=== PATIENT | male | born 1945 | race Caucasian/White ===

== ENCOUNTER → 2023-10-19 | Day surgery (SDC) | payer MEDICARE, OTHER ==
[2023-10-17 14:14] VITALS: BMI 31.7
[~2023-10-19] MED LIST: ALPRAZolam 0.25 MG TAB PO PRN; ALPRAZolam 0.5 MG TAB PO PRN; ASPIRIN 325 MG TAB PO PRN; HEPARIN SODIUM 1,000 UN/ML (10ML VL) ONE; HEPARIN SODIUM,PORCINE (1 ML) 2,500 UNIT in SODIUM CHLORIDE 0.9% 250 ML IRRIGATION PRN; HEPARIN SODIUM,PORCINE 10,000 UNIT in SODIUM CHLORIDE 0.9% 1,000 ML IRRIGATION PRN; LIDOCAINE 1% INJ 10MG/ML (20 ML MDV) ONE; VERAPAMIL 2.5 MG/ML 2 ML AMP ONE; ZOLPIDEM 5 MG TAB PO PRN; fentaNYL (PF) 50 MCG/ML 2 ML AMP ONE
[2023-10-19] MEDS: EMPTY BAG 1 BAG with SODIUM CHLORIDE 0.9% 1,000 ML IV SCH (06:17)
[2023-10-19 06:29] LABS: Glucose,Whole Blood 117 mg/dL (70-110)
[2023-10-19 06:35] LABS: Basophils # (A) 0.1 k/uL (0-0.2); Basophils % (A) 1 %; Eosinophils # (A) 0.1 k/uL (0-0.7); Eosinophils % (A) 2 %; HCT 44.3 % (39.0-53.0); HGB 14.5 gm/dL (13.0-17.5); Lymphocytes # (A) 1.2 k/uL (1.0-4.8); Lymphocytes % (A) 20 %; MCH 31.4 pg (25.0-35.0); MCHC 32.9 g/dL (31.0-37.0); MCV 95.4 fL (80.0-100.0); Mean Platelet Volume 7.3; Monocytes # (A) 0.4 k/uL (0-1.0); Monocytes % (A) 7 %; Neutrophils # (A) 4.1 k/uL (1.3-7.7); Neutrophils % (A) 69 %; Platelet Count 195 k/uL (150-450); RBC 4.64 m/uL (4.30-5.90); RDW 13.8 % (11.5-15.5); WBC 5.9 k/uL (3.8-10.6)
[2023-10-19 06:37] VITALS: TEMP 98.1
[2023-10-19 06:51] LABS: African American GFR (CKD) 57 (>60 ml/min/1.73 sqM); Anion Gap 8 mmol/L; Blood Urea Nitrogen 25 mg/dL (9-20); Calcium 9.3 mg/dL (8.4-10.2); Carbon Dioxide 28 mmol/L (22-30); Chloride 101 mmol/L (98-107); Glucose 121 mg/dL (74-99); Non-African American GFR(CKD) 49 (>60 ml/min/1.73 sqM); Sodium 137 mmol/L (137-145)
[2023-10-19] MEDS: LIDOCAINE 1% INJ 10MG/ML (20 ML MDV) SQ ONE (07:39)
[2023-10-19] MEDS: VERAPAMIL 2.5 MG/ML 4 ML VIAL INTRAARTER ONE (07:39)
[2023-10-19] MEDS: HEPARIN SODIUM 1,000 UN/ML (10ML VL) MISCELLANE ONE (07:39)
[2023-10-19] MEDS: NITROGLYCERIN 1000MCG/10ML SYRINGE INTRAARTER ONE (07:39)
[2023-10-19] MEDS: MIDAZOLAM 2 MG/2 ML VIAL IVP ONE (07:42)
[2023-10-19] MEDS: fentaNYL (PF) 50 MCG/1 ML VIAL IVP ONE (07:43)
[2023-10-19] MEDS: IOPAMIDOL-300 100ML BTL INTRATHECA ONE (07:58)
--- NOTE | 2023-10-19 08:01 | P.OP ---
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% Procedure: Aortogram with bilateral lower extremity runoffs via left radial artery access under ultrasound guidance Surgeon: Nissa Anesthesia: Moderate sedation times 20 minutes Estimated blood loss: 5 cc Complications: None Condition: Stable Findings: Aorta: Patent with atherosclerotic disease noted without any significant stenosis Iliacs: Bilateral common, internal and external iliac arteries with atherosclerotic disease throughout without any significant stenosis Femorals: Bilateral common femoral, profundus femoris arteries are patent with atherosclerotic disease throughout but no significant stenosis. Bilateral superficial femoral arteries are atherosclerotic and calcific with approximately 80% stenosis at the midportion of the right SFA and 60 to 70% stenosis of the left SFA extending down to the popliteal Popliteal: Bilateral popliteal arteries are patent with atherosclerotic disease throughout with stenosis roughly 60 to 70% on the left Tibials: Right anterior tibial artery occlusion just after the takeoff with reconstitution distally and two-vessel runoff. There is significant posterior tibial artery stenosis roughly 70% at the midportion. Left tibioperoneal trunk is occluded with significant atherosclerotic disease throughout. Difficult to trace blood flow down to the foot but appears to have one-vessel runoff posterior tibial artery Indication for procedure: 78-year-old gentleman with history of lower extremity claudication presents to the hospital for elective aortogram with runoff. He had workup in the office with lower extremity arterial Doppler which demonstrated bilateral ABIs of 0.7. He states he can only walk 30 feet without severe pain and both calves and lower extremities with the left being worse than the right. Operative narrative: After written informed consent was obtained the patient all risks benefits competitions were described the patient is brought to the [facility] and laid in a supine position. The area of the left wrist was prepped and draped in the usual sterile fashion. Local anesthesia with moderate sedation was performed with continuous pulse ox monitoring and EKG monitoring. Utilizing ultrasound the left radial artery was visualized and shown to be patent without any significant plaque. Utilizing a multipurpose needle under ultrasound guidance the artery was accessed. Guidewire was placed followed by 5 [place] slender sheath. 035 Glidewire was then placed into the aorta followed by pigtail catheter. Angiogram was then obtained of the aorta. Catheter was then placed at the bifurcation and lower extremity runoffs were obtained. Once completed all guidewires, catheters and sheaths were removed and pressure was placed for hemostasis. Patient tolerated procedure well was sent to PACU for recovery.
--- NOTE | 2023-10-19 09:19 | IR ---
PICC Insertion: EXAMINATION TYPE: IR angio abdominal w runoff Intraoperative/procedural fluoroscopic services were pr ovided. CLINICAL INDICATION:Male, 78 years old with history of PVD, PAIN IN LEFT LEG, 1.4MIN FLUORO; , [facility] Total fluoroscopy time is 1.4 min. DAP: 3.35 Gycm2 Please see the operative/procedural note for further details.
[2023-10-19 09:42] VITALS: RESP 16
[2023-10-19 12:29] VITALS: BP 146/62; PULSE 63
== END | disposition home or self-care (01) ==
LOC: CATHCVL 05:36
PROVIDERS: ATTEND Surgery
DX: I70.223 Atherosclerosis of native arteries of extremities with rest pain, bilateral legs (principal); E11.51 Type 2 diabetes mellitus with diabetic peripheral angiopathy without gangrene; E11.40 Type 2 diabetes mellitus with diabetic neuropathy, unspecified; E11.69 Type 2 diabetes mellitus with other specified complication; E78.5 Hyperlipidemia, unspecified; I11.9 Hypertensive heart disease without heart failure; Z95.5 Presence of coronary angioplasty implant and graft; Z95.0 Presence of cardiac pacemaker; Z87.891 Personal history of nicotine dependence; Z79.85 Long-term (current) use of injectable non-insulin antidiabetic drugs; Z79.4 Long term (current) use of insulin; Z79.84 Long term (current) use of oral hypoglycemic drugs; Z79.899 Other long term (current) drug therapy; Z79.02 Long term (current) use of antithrombotics/antiplatelets
CPT/HCPCS: 36200; 75625; 75716; 76937; 80048; 85025; C1769 ×3; C1894 ×2; J2250; J2001; J1644; Q9967; J3010; J2305

== ENCOUNTER → 2023-11-19 | Day surgery (SDC) | payer OTHER ==
[~2023-11-19] MED LIST changes: -HEPARIN SODIUM,PORCINE 10,000 UNIT in SODIUM CHLORIDE 0.9% 1,000 ML IRRIGATION PRN; +HEPARIN SODIUM,PORCINE 30 ML 30 ML ONE; -VERAPAMIL 2.5 MG/ML 2 ML AMP ONE
[2023-11-19] MEDS: EMPTY BAG 1 BAG with SODIUM CHLORIDE 0.9% 1,000 ML IV SCH (10:12)
[2023-11-19 10:25] LABS: Glucose,Whole Blood 134 mg/dL (70-110)
[2023-11-19] MEDS: IV FLUID CONTINUATION 1,000 ML IV ONE (10:27)
[2023-11-19 10:30] VITALS: RESP 16; TEMP 97.4
[2023-11-19 10:49] LABS: Basophils # (A) 0.1 k/uL (0-0.2); Basophils % (A) 1 %; Eosinophils # (A) 0.1 k/uL (0-0.7); Eosinophils % (A) 2 %; HCT 45.8 % (39.0-53.0); HGB 15.4 gm/dL (13.0-17.5); Lymphocytes % (A) 20 %; MCH 32.2 pg (25.0-35.0); MCHC 33.6 g/dL (31.0-37.0); MCV 95.9 fL (80.0-100.0); Mean Platelet Volume 7.6; Monocytes # (A) 0.3 k/uL (0-1.0); Monocytes % (A) 6 %; Neutrophils # (A) 3.2 k/uL (1.3-7.7); Neutrophils % (A) 67 %; Platelet Count 199 k/uL (150-450); RBC 4.77 m/uL (4.30-5.90); RDW 14.1 % (11.5-15.5); WBC 4.8 k/uL (3.8-10.6)
[2023-11-19 11:04] LABS: African American GFR (CKD) 56 (>60 ml/min/1.73 sqM); Anion Gap 8 mmol/L; Blood Urea Nitrogen 20 mg/dL (9-20); Calcium 9.4 mg/dL (8.4-10.2); Carbon Dioxide 22 mmol/L (22-30); Chloride 107 mmol/L (98-107); Glucose 144 mg/dL (74-99); Non-African American GFR(CKD) 49 (>60 ml/min/1.73 sqM); Potassium 4.6 mmol/L (3.5-5.1); Sodium 137 mmol/L (137-145)
[2023-11-19] MEDS: HEPARIN SODIUM,PORCINE 10,000 UNIT in SODIUM CHLORIDE 0.9% 1,000 ML IRRIGATION PRN (11:55)
[2023-11-19] MEDS: fentaNYL (PF) 50 MCG/ML 2 ML AMP IVP ONE (12:06)
[2023-11-19] MEDS: MIDAZOLAM 2 MG/2 ML VIAL IVP ONE (12:06)
[2023-11-19] MEDS: LIDOCAINE 1% INJ 10MG/ML (20 ML MDV) SQ ONE ×2 (12:06→12:07)
[2023-11-19] MEDS: HEPARIN SODIUM 1,000 UN/ML (10ML VL) IVP ONE (12:14)
[2023-11-19] MEDS: IOPAMIDOL-370 200ML BTL INJ ONE (13:13)
--- NOTE | 2023-11-19 13:30 | P.OP ---
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 Ultrasound guided left femoral artery access 2. Right lower extremity selective angiogram 3. Percutaneous directional atherectomy of right superficial femoral artery with Hawk One device 4. Percutaenous balloon angioplasty of right superficial femoral artery and anterior tibial artery 5. Percutaneous closure of left femoral artery with Vascade device Surgeon: Crow Azar DO Anesthesia: conscious sedation with local x 55 mins EBL: 5 cc Complications: none Condition: Stable Findings: 80% stenosis of the midportion of the SFA with multiple areas of calcific disease. Total occlusion with reconstitution of the anterior tibial artery Indication for procedure: 78-year-old gentleman with history of claudication and rest pain worse on the right lower extremity presents to the hospital for elective right lower extremity angiogram and revascularization. 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 Since that time he has developed worsening rest pain and previous ABIs were less than 0.7 on the right. Operative narrative: After written and informed consent was obtained the patient all risks, benefits and complications were described patient is brought to the [facility] [employer] and laid supine position. The area of the left groin was prepped and draped in usual sterile fashion. Timeout was performed in normal fashion. Utilizing ultrasound the left femoral artery was accessed and a 6 F sheath was placed. 035 Glidewire was then placed into the aorta followed by an RBI catheter and the right iliac was accessed in an up and over fashion. 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 Patient was given heparin and followed with ACTs. An 035 Glidewire advantage was then placed in an up and over fashion and the 6 F short sheath was removed and replaced with an up and over 6F x 65cm sheath. Selective angiogram was again obtained demonstrating occlusion/stenosis of the SFA and anterior tibial artery. Utilizing 035 Glidewire and quick cross catheter the lesion at the anterior tibial artery was crossed and selective angiogram distally was obtained demonstrating good intraluminal access. An 014 wire was then placed and balloon angioplasty was then performed with a 2 x 40 mm [place] followed by a 2.5 x 40 chocolate balloon. Angiogram was then obtained demonstrating improved occlusion with brisk flow to the ankle. Attention was then placed to the superficial femoral artery and quick cross catheter was placed over the 014 wire and the wire was removed. A 6 spider filter was placed distal to the SFA lesion in the popliteal artery and utilizing a 6M IIDk one atherectomy device directional atherectomy was performed with multiple passes. Once completed angiogram was obtained demonstrating improvement of the stenotic area. Balloon angioplasty was then performed with a 5 x 120 mm drug-eluting balloon. Final angiogram demonstrated brisk flow with resolution of stenosis of the superficial femoral artery and occlusion of the anterior tibial artery. All guidewires and catheters were then removed the sheath was removed and replaced with a short 6 F sheath and utilizing a Vascade closure device the access was closed. Pressure was placed for hemostasis. The patient tolerated the procedure well and had palpable DP pulses and was sent to recovery.
--- NOTE | 2023-11-19 14:58 | IR ---
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 CLINICAL INDICATION:Male, 78 years old with history of Leg pain, 16.2m,41.2DAP, Lt gr vascade.; , [facility] Total fluoroscopy time is 16.2 min. DAP: 8.76 Gycm2 uGym2 Please see the operative/procedural note for further details.
[2023-11-19 17:03] VITALS: BP 152/71; PULSE 68
== END | disposition home or self-care (01) ==
LOC: CATHCVL 09:57
PROVIDERS: ATTEND Surgery
DX: I70.213 Atherosclerosis of native arteries of extremities with intermittent claudication, bilateral legs (principal)
CPT/HCPCS: 37225; 37228; 80048; 85025; C1769 ×5; C1894 ×2; C1725 ×2; C1887; C1714; C1884; C2623; J2250; J1644 ×2; J2001; J3010; Q9967